=== PATIENT | female | born 1960 | race Caucasian/White ===

== ENCOUNTER 2024-08-12 07:00 | Outpatient (OUT) | payer OTHER, SELFPAY ==
--- OUTSIDE RECORDS SUMMARY | 2024-08-13 13:58 | XMS_ITS | Data Portability ---
Author Organization [facility] Nickolas [place], [place] Address [address] [place] [address] Care Team Providers Care Svp Monetization Name Role Phone STALINDENNY Primary Care Provider [phone] CLINT GHOTRA Rules Examiner DONNA HERRERA Temperature Inspector [phone] Assessment Encounter Date Assessment Date Assessment LastModified by Organization Details LastModified Time 06/17/2024 06/17/2024 Patient seen in office today. Spent greater than 30 minutes with patient, over 50% of the time spent on counseling, including time spent reviewing interval history, labs, data, reviewing/refill ing prescriptions, updating/complet ing documentation in the EHR, ordering medications, tests, referring or communicating to other health providers. This time is independent and non-overlapping. This time does NOT include time spent on CGM-related services or interpretation. Not available 06/17/2024 15:36:41 Plan of Treatment Reminders Order Date Submit Date Provider Last Modified By Organization Details Last Modified Time Details Appointments Follow Up 2024 11:20A Lina Ratliff MD Not available Not available Not available Lab None recorded. Referral None recorded. Procedures None recorded. Surgeries None recorded. Imaging None recorded. 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 Patient Instructions Encounter Date Encounter Id Patient Instructions Last Modified By Organization Details Last Modified Time 08/02/2023 [id number] controlling your asthma: care instructions [email or web address] Not available 08/02/2023 09:14:07 learning about asthma [email or web address] Not available 08/02/2023 09:14:07 constipation: ca re instructions [email or web address] Not available 08/02/2023 09:06:27 high cholesterol : care instructions [email or web address] Not available 08/02/2023 09:06:27 insulin resistance: care instructions [email or web address] Not available 08/02/2023 09:06:27 hypothyroidism: care instructions [email or web address] Not available 08/02/2023 09:06:27 06/17/2024 [id number] Patient voiced understanding of plan and questions were answered to their satisfaction. Not available 06/17/2024 15:30:13 Reason for Referral None Reported. Results Created Date Observation Date Name Description Value Unit Range Abnormal Flag Note LastModifiedBy Organization Detail LastModifiedTime 07/10/1907/10/2023 vitam in D2, 25-hy droxy , serum - vitamin D, 25-hydroxy Not Available Not Available 0 07/11/2024 06:02:32 07/10/19 24 07/10/2023 lab resul t - TSH Not Available Not Availa ble 07/11/2024 06:02:32 07/10/19 24 07/10/2023 T4, free, serum - T4, free Not Available Not Isi ilable 07/11/2024 06:02:24 05/06/20 24 07/10/2023 T3, free, serum or plasm a - T3, free Not Available Not Isi ilable 07/11/2024 06:02:24 07/10/19 24 07/10/2023 lipid panel w/ direc t LDL, serum - lipid panel with reflex to direct LDL Not Available Not Available 0 07/11/2024 06:02:22 07/10/19 24 07/10/2023 HbA1c (hemo globi n A1c), blood - hemoglobin A1C Not Available Not Available 10/2024 06:02:20 07/10/19 24 07/10/2023 CMP, serum or plasm a - comprehensiv e metabolic panel Not Available Not Available 10/2024 06:02:19 Result Notes None recorded. Problems Name Problem SNOMED Code Status Onset Date Resolution Date Notes Provider Name and Address Organization Details Recorded Time Hyperlipi demia 05459344 Active 2022 Hyperlipid emia LDL goal <130; W/U Status: confirmed Not Available [facility] 3 07:38:34 Intestina l malabsorp tion 542618694 Active 2016 Malabsorpt ion; W/U Status: confirmed Not Available [facility] 3 07:38:34 Metabolic syndrome X 301726802 Active 2014 Metabolic syndrome; W/U Status: confirmed Not Available [facility] 3 07:38:34 Serum alkaline phosphata se above reference range 894065244 Active 2022 Elevated serum alkaline phosphatas e level; W/U Status: confirmed Not Available [facility] 3 07:38:34 Vitamin D deficienc y 99439591 Active 2017 Vitamin D deficiency ; W/U Status: confirmed Not Available [facility] 3 07:38:34 Fatigue 62736840 Active 2016 Other fatigue; W/U Status: confirmed Not Available [facility] 3 07:38:35 Constipat ion 29810150 Active 2016 Constipati on; W/U Status: confirmed Not Available [facility] 3 07:38:35 Hypothyro idism 74886500 Active 2017 Hypothyroi dism; W/U Status: confirmed Not Available [facility] 3 07:38:35 Acquired hypothyro idism 182836805 Active 2024 Liz Ratliff MD [address] [place], [address] , [facility] 5 15:34:36 Asthma 274067474 Active 2023 Erin Mancera MD [facility] [place], [address] , [facility] 4 09:11:30 Problem Notes None recorded. Medical Equipment None Reported. Allergies Allergen ID Allergen Name Allergen Category Reaction Reaction Severity Criticality Documentation Date Start Date Code Code System Note Provider Name and Address Organization Details Recorded Time 66236 Substance with sulfonami de structure and antibacte rial mechanism of action (substanc e) medicatio n Not available Not available Not available 12/25/2022 53807 8003 SNOMED Not Available [facility] 3 07:34:50 28462 Synvisc medicatio n Not available Not available Not available 12/25/2022 26594 4 RxNorm Not Available [facility] 3 07:34:50 Medications Name Sig Start Date Stop Date Status Note LastModified by Organization Details LastModified Time celecoxib 200 mg capsule TAKE 1 CAPSULE DAILY active Not Available Not Available No t Available monteluka st 5 mg chewable tablet 1 tab(s); once a day active Action: Taking S ource: Donna Floyd Prepare d By: Donna Floyd Not Available Not Available Not Available levothyro xine 137 mcg tablet 1 tab(s); once a day; 30 active Action: 3 Source : Shoshana Loja Prepare d By: Damian Curry on 09/11/2012 3:55:05 PM Faxed : Faxed-Dr cha Skinner Not Available Not Available Not Available nystatin 100,000 unit/mL oral suspensio n TAKE 15 ML BY MOUTH 3 TIMES DAILY FOR 4 WEEKS 08/01 completed Not Available Not Available Not Available Unithroid 88 mcg tablet 1 tab(s); once a day (in addition to MAINTENANCE TRUCK DRIVER thyroid) ; 90 days active Action: 3 Source : VikiSharion T Prepare d By: JameyhamiltonkofiShari 0 12:53:59 PM Asses sment: E03.9 Hypothyr oidism Not Available Not Available Not Available [place] Thyroid 90 mg tablet 1 tab(s); once a day; 30 day(s) active Action: Taking S ource: Nikki Lee MD Prepa red By: Nikki Lee Ass essment: E03.9 Hypothyr oidism, unspecif ied Not Available Not Available Not Available cetirizin e 10 mg tablet TAKE 1 TABLET (10 MG) BY MOUTH DAILY NEEDED FOR ALLERGIE S active Not Available Not Available No t Available azithromy lee 250 mg tablet TAKE 2 TABLETS BY MOUTH TODAY, THEN TAKE 1 TABLET DAILY FOR 4 DAYS DIRECTED 08/01 completed Not Available Not Available Not Available tizanidin e 4 mg tablet TAKE 1 TABLET 4 TIMES DAILYAS NEEDED active Not Available Not Available No t Available fluconazo le 150 mg tablet TAKE 1 TABLET BY MOUTH WEEKLY 08/01 completed Not Available Not Available Not Available benzonata te 200 mg capsule TAKE 1 CAPSULE BY MOUTH EVERY 8 HOURS NEEDED FOR COUGH DIRECTED 08/01 completed Not Available Not Available Not Available Synthroid 150 mcg tablet 1 tab(s); once a day; 30 day(s) active Action: Taking S ource: Nikki Lee MD Prepa red By: Navi Castaneda 08/07/2012 2:50:07 PM Not Available Not Available Not Available fluconazo le 200 mg tablet TAEK 1 TABLET BY MOUTH ONCE WEEKLY 08/01 completed Not Available Not Available Not Available Synthroid 125 mcg tablet 1 tab; once a day; 30 day(s) active Action: Taking S ource: Shoshana Espinoza d By: Nikki Lee 03/04/20 13 10:52:33 AM Asses sment: 244.9 Hypothyr oidism Not Available Not Available Not Available famotidin e 40 mg tablet TAKE 1 TABLET BY MOUTH ONCE DAILY AT BEDTIME 08/01 completed Not Available Not Available Not Available prednison e 20 mg tablet TAKE 1 TABLET (20 MG) BY MOUTH IN THE MORNING AND BEFORE BEDTIME. DO ALL THIS FOR 6 DAYS. 08/01 completed Not Available Not Available Not Available dexametha sone 6 mg tablet TAKE 1 TABLET BY MOUTH FOR 7 DAYS THEN 1/2 FOR 7 DAYS 08/01 completed Not Available Not Available Not Available clindamyc in HCl 150 mg capsule TAKE 1 CAPSULE BY MOUTH SELECT FREQUENC Y TAKE WITH A PROBIOTI C 06/17 completed Not Available Not Available Not Available cosyntrop in 0.25 mg solution for injection 0.25 mg; once; 1 dose(s) 2012 active Action: Start So urce: Nikki Lee MD Prepa red By: Nikki Lee 03/04/20 13 10:59:04 AM Asses sment: 780.79 Fatigue Not Available Not Available Not Available Vitamin B-12 500 mcg tablet 2 tabs; once a day active Action: Disconti nued Nelida rce: Nikki Lee MD Prepa red By: Nikki Lee Not Available Not Available Not Available liothyron ine 5 mcg tablet 1-2 times; once a day; 30 day(s) 2012 active Action: Start So urce: Tamara Rose Prepare d By: Tamara Rose 3 11:04:13 AM Asses sment: 244.9 Hypothyr oidism Not Available Not Available Not Available Unithroid 112 mcg tablet Take 1 tablet every day by oral route for 90 days. 2024 active Not Available Not Available Not Avai lable amoxicill in 875 mg tablet TAKE 1 TABLET BY MOUTH TWICE A DAY FOR 5 DAYS 06/17 completed Not Available Not Available Not Available famotidin e 20 mg tablet TAKE 1 TABLET BY MOUTH AT BEDTIME 08/01 completed Not Available Not Available Not Available Vicky 180 mg tablet 1 tab(s); 1-2 times a day active Action: Taking S ource: Nikki Lee MD Prepa red By: Navi Castaneda 3 9:29:27 AM Not Available Not Available Not Available doxycycli ne monohydra te 100 mg capsule TAKE 1 CAPSULE BY MOUTH TWICE A DAY 08/01 completed Not Available Not Available Not Available dexametha sone 2 mg tablet TAKE 1 TABLET BY MOUTH EACH MORNING 08/01 completed Not Available Not Available Not Available pantopraz ole 40 mg tablet,de layed release TAKE 1 TABLET BY MOUTH TWICE A DAY 08/01 completed Not Available Not Available Not Available Unithroid 50 mcg tablet 1 tab(s); once a day; 90 days active Action: Continue Source: Shari Drew Prepare d By: Shari Drew 07/12/2018 3:01:16 PM Asses sment: E03.9 Hypothyr oidism Not Available Not Available Not Available dexametha sone 4 mg tablet PLEASE SEE ATTACHED FOR DETAILED DIRECTIO NS 08/01 completed Not Available Not Available Not Available Vicky-D 12 Hour 60 mg-120 mg tablet,ex tended release 08/01 completed Not Available Not Available Not Available prednison e 50 mg tablet TAKE 1 TABLET BY MOUTH 13 HOURS, 7 HOURS AND 1 HOUR BEFORE DYE EXPOSURE 06/17 completed Not Available Not Available Not Available losartan 25 mg tablet TAKE 1 TABLET BY MOUTH EVERY DAY active Not Available Not Available No t Available Unithroid 100 mcg tablet 1 tab(s); once a day (in addition to MAINTENANCE TRUCK DRIVER thyroid) ; 90 days active Action: Taking S ource: Nikki Lee MD Prepa red By: Nikki Lee Ass essment: E03.9 Hypothyr oidism Not Available Not Available Not Available Banophen 25 mg capsule 2 CAP(S) ORAL ONCE,INS TR:1 HOUR BEFORE DYE EXPOSURE 06/17 completed Not Available Not Available Not Available budesonid e 0.5 mg/2 mL suspensio n for nebulizat ion INHALE ENTIRE CONTENTS VIA NEUBULIZ ER EVERY 12 HOURS 08/01 completed Not Available Not Available Not Available monteluka st 10 mg tablet TAKE 1 TABLET DAILY active Not Available Not Available No t Available Unithroid 25 mcg tablet 1 tab(s); once a day; 90 days 2017 active Action: Start So urce: Shari Drew Prepare d By: Shari Drew 02/21/20 18 10:53:38 AM Asses sment: E03.9 Hypothyr oidism e Prescrip tion: ePrescri ption-KR OGER RON 505 Not Available Not Available Not Available azelastin e 137 mcg (0.1 %) nasal spray INSTILL 2 SPRAYS IN EACH NOSTRL DAILY DIRECTED 08/01 completed Not Available Not Available Not Available ibuprofen 600 mg tablet TAKE 1 TABLET BY MOUTH EVERY 8 HOURS NEEDED FOR PAIN active Not Available Not Available No t Available albuterol sulfate HFA 90 mcg/actua tion aerosol inhaler INHALE 2 PUFFS BY MOUTH EVERY 6 HOURS 08/01 completed Not Available Not Available Not Available Unithroid 75 mcg tablet 1 tab(s); once a day; 90 days active Action: Taking S ource: Nikki Lee MD Prepa red By: Nikki Lee Ass essment: E03.9 Hypothyr oidism e Prescrip tion: ePrescri ption-EX PRESS SCRIPTS Not Available Not Available Not Available Vitamin D2 1,250 mcg (50,000 unit) capsule 50,000 IU; 1 capsule 2 days a week for 2 months; 60 days 2012 active Action: Taking S ource: Tamara Rose Prepare d By: Navi Castaneda 3 9:29:27 AM Not Available Not Available Not Available ipratropi um bromide 42 mcg (0.06 %) nasal spray SPRAY 2 SPRAYS INTO EACH NOSTRIL EVERY MORNING EVERY EVENING & AT BEDTIME active Not Available Not Available No t Available cefdinir 300 mg capsule TAKE 1 CAPSULE (300 MG TOTAL) BY MOUTH TWO TIMES A DAY FOR 7 DAYS. 06/17 completed Not Available Not Available Not Available fluticaso ne propionat e 50 mcg/actua tion nasal spray,raimundo pension ADMINIST ER 2 SPRAYS INTO EACH NOSTRIL DAILY SHAKE GENTLY. BEFORE FIRST USE, PRIME PUMP. 08/01 completed Not Available Not Available Not Available metformin ER 500 mg tablet,ex tended release 24 hr 2 tabs; once a day active Action: Disconti nued Nelida rce: Tamara Rose Prepare d By: Nikki Lee essment: 277.7 Insulin Resistan ce Syndrome Not Available Not Available Not Available amoxicill in 875 mg-potass ium clavulana te 125 mg tablet TAKE 1 TABLET (875 MG) BY MOUTH EVERY DAY IN THE MORNING AND AT BEDTIME 08/01 completed Not Available Not Available Not Available Topamax 50 mg tablet 1 tab(s); 2 times a day; 30 day(s) active Action: Taking S ource: Nikki Lee MD Prepa red By: Navi Castaneda 08/07/2012 2:50:07 PM Not Available Not Available Not Available Cymbalta 60 mg capsule,d elayed release 1 cap(s); once a day active Action: Not-Taki ng/PRN S ource: Shari Drew T Prepare d By: Shari Drew Not Available Not Available Not Available levalbute rol HFA 45 mcg/actua tion aerosol inhaler INHALE 2 PUFFS EVERY 6 HOURS NEEDED FOR WHEEZING 08/01 completed Not Available Not Available Not Available Zanaflex 4 mg capsule 2 tab(s); every 8 hours prn; 30 day(s) active Action: Taking S ource: Tamara Rose Prepare d By: Navi Castaneda 3 9:29:27 AM Not Available Not Available Not Available chlorhexi dine gluconate 0.12 % mouthwash SWISH AND SPIT 15 ML BY MOUTH TWICE A DAY active Not Available Not Available No t Available Sudafed active Action: Taking S ource: Nikki Lee MD Not Available Not Available Not Available Nasacort active Action: Taking S ource: Nikki Lee MD Not Available Not Available Not Available multivita min 1 tab daily active Not Available Not Available No t Available cholecalc iferol (vitamin D3) 25 mcg (1,000 unit) tablet 3 Tabs; once a day active Action: Taking S ource: Shari Drew michael T Prepare d By: Shari Drew Ass essment: E55.9 Vitamin D deficien cy, unspecif ied Not Available Not Available Not Available arformote rol 15 mcg/2 mL solution for nebulizat ion INHALE 1 NEBULE VIA NEBULIZE R TWICE DAILY 08/01 completed Not Available Not Available Not Available cholecalc iferol (vitamin D3) 125 mcg/mL (5,000 unit/mL) oral drops 1 cap(s); once a day; 30 day(s) active Action: Taking S ource: Tamara Rose d By: Navi Castaneda 3 9:29:27 AM Not Available Not Available Not Available Tirosint 125 mcg capsule 1 cap(s); once a day; 30 day(s) active Action: Taking S ource: Tamara Rose d By: Tamara Rose ssessmen t: 244.9 Hypothyr oidism Not Available Not Available Not Available Tirosint 100 mcg capsule 1 cap(s); once a day; 30 day(s) active Action: 4 Source : Milton Mcdonald P repared By: Tamara Rose 02/26/20 15 11:07:13 AM Asses sment: E03.9 Hypothyr oidism, unspecif ied ePre scriptio n: [facility]Prescri [facility]tion-[facility] Not Available Not Available Not Available Tirosint 112 mcg capsule 1 cap(s); once a day; 30 day(s) active Action: Taking S ource: Nikki Lee MD Prepa red By: Nikki Lee Ass essment: E03.9 Hypothyr oidism, unspecif ied ePre scriptio n: ePrescri ption-KR OGER RON 505 Not Available Not Available Not Available Tirosint 150 mcg capsule 1 cap(s); once a day; 30 day(s) 2012 active Action: Taking S ource: Shoshana Espinoza d By: Nikki Lee 03/04/20 13 10:52:33 AM Asses sment: 244.9 Hypothyr oidism Not Available Not Available Not Available Tirosint 137 mcg capsule 1 cap(s); once a day; 30 day(s) active Action: 3 Source : Nikki Lee MD Prepa red By: Nikki Lee 6 9:07:59 AM Asses sment: E03.9 Hypothyr oidism, unspecif ied ePre scriptio n: ePrescri ption-KR OGER RON 505 Not Available Not Available Not Available BD Ultra-Fin e Marcelle Pen Needle 32 gauge x 5/32 as directed ; daily; 90 days active Action: Taking S ource: Shari Drew Prepare d By: Nikki Lee Ass essment: E88.81 Metaboli c syndrome ePrescr iption: ePrescri ption-Ca remark Not Available Not Available Not Available [employer]INTENA[employer]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 2024 active Not Available Not Available Not Avai lable Vitamin D3 50 mcg (2,000 unit) capsule 1 cap(s); once a day active Action: 4 Source : Shari Drew Prepare d By: Shari Drew 7 4:18:30 PM Asses sment: E55.9 Vitamin D deficien cy, unspecif ied Not Available Not Available Not Available Victoza 2-Bob 0.6 mg/0.1 mL (18 mg/3 mL) subcutane ous pen injector 1.8 mg; once a day; 90 days active Action: Taking S ource: Shari Drew Prepare d By: Nikki Lee Ass essment: E88.81 Metaboli c syndrome ePrescr iption: ePrescri ption-Ca remark Not Available Not Available Not Available Farxiga 10 mg tablet TAKE 1 TABLET BY MOUTH DAILY 08/01 completed Not Available Not Available Not Available Trulicity 1.5 mg/0.5 mL subcutane ous pen injector 1.5 mg; once a week; 30 day(s) 2015 active Action: Start So urce: Nikki Lee MD Prepa red By: Nikki Lee 6 9:06:34 AM Asses sment: 277.7 Insulin Resistan ce Syndrome Not Available Not Available Not Available Saxenda 3 mg/0.5 mL (18 mg/3 mL) subcutane ous pen injector 3 mg; daily 2014 active Action: Stop Nelida rce: Nikki Lee MD Prepa red By: Nikki Lee 6 9:06:34 AM Asses sment: 277.7 Insulin Resistan ce Syndrome Not Available Not Available Not Available Cl[place]all DMT 30 mg-30 mg tablet TAKE 1 TABLET BY MOUTH EVERY 4 HOURS NEEDED 08/01 completed Not Available Not Available Not Available Yupelri 175 mcg/3 mL solution for nebulizat ion INHALE 1 NEBULIZE R DAILY 08/01 completed Not Available Not Available Not Available Trelegy Ellipta 200 mcg-62.5 mcg-25 mcg powder for inhalatio n INHALE 1 PUFF ONCE DAILY 08/01 completed Not Available Not Available Not Available Astepro Allergy 205.5 mcg (0.15 %) nasal spray INSTILL 2 SPRAYS INTO EACH NOSTRIL TWICE DAILY active Not Available Not Available No t Available Vitals Date Recorded Body height Body mass index (BMI) Body weight Heart rate Systolic blood pressure Diastolic blood pressure Provider Name and Address Organization Details Last Updated DateTime 5 156.845 cm 31 kg/m2 35428.2 4 g 82 /min 138 mm[Hg] 82 mm[Hg] Sabrina Waller [facility] 5 14:36:34 Date Recorded Body height Body mass index (BMI) Body weight Heart rate Systolic blood pressure Diastolic blood pressure Provider Name and Address Organization Details Last Updated DateTime 4 156.845 cm 30.4 kg/m2 97787.7 4 g 68 /min 126 mm[Hg] 72 mm[Hg] Mary Dooley [facility] 4 08:47:04 Social History None recorded. Functional Status None recorded. Mental Status None recorded. Family History Nothing Reported Notes:Children: Notes: alive , Daughters- hypothyroidism, Chiari malformation, IBS FamilyHistoryDetails: COMMENTS:1 brother(s) , 2 sister(s) . 1 son(s) , 3 daughter(s) Father: Notes: , Type 2 DM, Coronary Artery Disease, CHF, Hyperlipidemia, Lung Cancer Maternal Grand Mother: Notes: Stomach Cancer, Early Onset Alzheimer Mother: Notes: , Pre-DM, Early Onset Alzheimers NOTE: Notes: 4 biologic children 3 adopted Paternal Grand Mother: Notes: Type 2 DM Siblings: Notes: Sisters-Thyroid Disorder; Brother ( at age 8, car accident) Children: FamilyHistoryDetails: Father: Maternal Grand Mother: Mother: NOTE: Paternal Grand Mother: Siblings: Medical History No medical history recorded. Gynecological HistoryNo gynecological history recorded. Obstetrics History GPAL:G 0 P 0 0 0 0 Past Encounters Encounter ID Performer Location Encounter Start Date Encounter Closed Date Diagnosis/Indication Diagnosis SNOMED-CT Code Diagnosis ICD10 Code Diagnosis Note [id number] Erin Mancera MD [facility] [place] Office* [address] [place] [address] 08/02/2023 08:19:13 08/02/2023 09:14:46 Hypothyroidism 24543358 E03.9 Patient seen in office today. Spent 35 minutes with patient, over 50% of the time spent on counseling , including time spent reviewing interval history, labs, data, reviewing/ refilling prescripti ons, updating/c ompleting documentat ion in the EHR, ordering medication s, tests, referring or communicat ing to other health providers. This time is independen t and non-overla pping. This time does NOT include time spent on CGM-relate d services or interpreta tion. Seeing me today for the first time. 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 Clinically feels well now. The patient was given an opportunit y to ask all questions, and I answered them. Metabolic syndrome X 237 772671 E88.810 HbA1c is normal despite steroids, which is great Hyperlipidemia 53121857 E78.5 Normal lipids; managed by PCP Vitamin D deficiency 347 46852 E55.9 Vitamin D level is optimal on current therapy. (taking a MVI) Serum jason line phosphatase above reference range 513895455 R74.8 Paget's ruled out in 2022 Constipation 88357179 K5 9.00 stable Asthma 182401595 J45.[address] Heller in pulmonary; had numerous steroids this winter; seeing aircraft instrument tester soon for allergy testing [id number] Liz Ratliff MD [place] [place] [facility]* [address] [place] [address] 06/17/2024 14:21:18 06/17/2024 15:37:41 Hypothyroidism 81586311 E03.9 -last TSH low at 0.01 (from TSH 0.06 Dec 2023) ; historical ly has been low but does have elevated TSH in ~ 2017 so dx consistent with primary hypothyroi dism; pt states thyroid dose adjustment s have been made to target a certain level of Free T4 over the years without significan t success-cl inically euthyroid on exam-discu sed plan to raise TSH to avoid osteoporos is and cardiac arrhythmia s and rely upon TSH for now to inform dose adjustment and she is agreeable to thisPlan:- continue Unithroid 112 mcg daily-decr ease to MAINTENANCE TRUCK DRIVER thyroid 60 mg five days per week (from six days)-repe at TSH in 6 weeks MAINTENANCE TRUCK DRIVER thyroid to four days/week- return in person in 3 months Asthma 665450144 J45.[address] Heller in pulmonary Hyperlipidemia 40238627 E78.5 Normal lipids; managed by PCP Vitamin D deficiency 347 99654 E55.9 Plan:-take s a multivitam i n Serum jason line phosphatase above reference range 139772380 R74.8 Paget's ruled out in 2022 Constipation 39196405 K5 9.00 stable Health Concerns Section Related Observation LastModified by Organization Detai ls LastModified Time None Recorded Concern Status LastModified by Organization Details LastModified Time None Recorded Advance Directives Directive None Recorded Payers Encounter Date Sequence Insurance Name Policy Number Policy Garcia Covered Member ID Garcia Member ID Guarantor Name 08/02/2023 1 [employer] Divya A Christina [id number] Divya Christina 06/17/2024 1 [employer] Divya A Christina [id number] Divya Christina Notes Date Note Type Note Provider Name and Address Organization Details Recorded Time 4 text/html HypothyroidismReported bypatient.Date of diagnosis:Presentation: tested during 4th around the early Symptoms:no fatigue; no unexplained weight gain/loss; no palpitations; no constipation; Other symptoms: none Context:history of thyroid nodules no; (06/15) U/S - no nodules, atrophic gland. Modifying Factors:taking medication as prescribedNotes:Treatment status:treated with MAINTENANCE TRUCK DRIVER thyroid, fully compliant with taking meds, no interferingsubstances on generic, then on branded Synthroid (10/16) tried Cytomel - nodifference/improvement (02/15) changed to Tirosint (01/19) changed to Armor due to high TSH (09/19) changed to MAINTENANCE TRUCK DRIVER thyroid (12/20) increased MAINTENANCE TRUCK DRIVER thyroid to 120 + 30 mcg every other day (05/21) taking 120 plus 1/2 of a 60 once a week (02/20) Switch to 60mg 2 tabs 6 days/week, [id number] unithroid 1 tab daily (03/24) increase unithroid to 50 mcg (07/22) change to 90g MAINTENANCE TRUCK DRIVER thyroidand 50mcg unithroid daily (10/22) dropped to MAINTENANCE TRUCK DRIVER 90 5 days and 75 mcg Unithroid daily (10/23)Changed to MAINTENANCE TRUCK DRIVER 60mg daily and Unithriod 100mcg daily (05/24) drop to MAINTENANCE TRUCK DRIVER 60 mg 6 days andUnithroid 100 daily (07/25) Reduce to MAINTENANCE TRUCK DRIVER Thyroid 60mg 5 days/week and continue [id number] daily (07/27) MAINTENANCE TRUCK DRIVER Thyroid 60mg 6 days/week and Unithroid 112mcg daily. Associated Findings: asthma, severe : menopausal Recent TSH/thyroid labs: (11/20) TSH 1.75 (02/19) TSH 16, low free T4 (03/23) TSH0.01 (06/21) TSH 0.19, Vit D 106 (10/21) TSH 0.24, free T4 slightly low (02/20) TSH 0.03, lownormal FT4 at 0.6 (07/22) TSH 0.02, FT4 normal at 0.77 (01/22) TSH 0.8, FT4 low, vit D 66 (10/23)TSH 0.27, FT4 low (05/24) TSH 0.006, FT4 nl, Vit D 72 (12/24) TSH 0.03, FT4 normal at 0.89 (06/25) TSH 0.02, FT4 normal at 1.2 (04/28) TSH 0.02, Free T4 low at 0.6, T3 normal (09/25) TSH 0.01, normal FT4 which is an improvement;(07/27) TSH 0.01, free T4 1.27, free T3 3.7 Vitamin D status: normal at 57 07/27 ObesityReported bypatient.Context:oral steroids Associated Symptoms:hypothyroidism Co-morbidities:no new co-morbidities since last visit Lifestyle changes:few constitutional symptoms related to diagnosis Nutrition:eats mostly healthy diet; (07/25) portion control, aiming for healthy foods only eat when I'm hungry an stop when I'm full (07/27) up 7 lbs Physical Activity:(09/25) doing virtual PT about 6 mo s/p R knee replacement higher activity levels are great!.Notes: status: menopausal Vitamin D:taking a MVI Prior Therapy: (02/15) started metformin, (07/17) stopped metformin - didn't really notice a difference (02/16) cannot tolerate even 1000 mg of metformin due to GI disturbance (09/17)started Saxenda w/excellent weight loss, (08/19) stopped due to lack of coverage and Trulicity not covered, back to [facility]. Current Therapy:nothing currently Associated: Paget's ruled out in 2022 with normal BSAP LABS: (06/25) TC 185, TG 166, HDL 69, LDL 88 (04/28) TC 210, TG173, HDL 67, LDL 123 (09/25) Lipids at goal Alk phos 160s, BSAP mildly elevated in 30s, PTH nl, TBili 1.3. , vit D >100 (07/27) vit D 57, normal CMP and lipids HbA1c : (07/27) 5.2%; (09/25) A1C 5.6% (04/28) 5.8% (06/25) 5.6% (12/24) 5.8% (05/24) 5.6 (10/23) 5.7% (01/22) 5.6 (5/) 5.3% (/) 5.3% (8/) 5.3% (4/) 5.2 (01/20) 5.2% (08/20) 5.6% (12/18) 5.4% (08/18) 5.6 (01/17) 5.6 (7) 5.8 (05/17) 5.6 (02/15) 5.8. Patient is here in office today for follow up for hypothyroidism. Seeing me today for the first time. Had a rough winter with steroids from asthma and a brief cardiac issue (atrial enlargement and sinus tach ) from steroids (no admission needed to hospital); from February-June her asthma was severe; latest PFTs were normal; seeing her presetter operator soon for follow up but her asthma is much better. Weight is up 7 lbs from last summer. Feeling better now. Erin Mancera MD [address] [place], [id number], [facility] 08/02/2023 09:18:11 5 text/html HypothyroidismReported bypatient.Date of diagnosis:Presentation: tested during 4th around the early Symptoms:no fatigue; no unexplained weight gain/loss; no palpitations; no constipation; Other symptoms: none Context:history of thyroid nodules no; (06/15) U/S - no nodules, atrophic gland. Modifying Factors:taking medication as prescribedNotes:Sx:*primary concern is fatigue. Pt does not report palpitations, weight changes, cold intolerance, heat intolerance, bowel changes, or tremors. Current tx: MAINTENANCE TRUCK DRIVER Thyroid 60mg 6 days/week and Unithroid 112mcg daily Treatment status:treated with MAINTENANCE TRUCK DRIVER thyroid, fully compliant with taking meds, no interferingsubstances on generic, then on branded Synthroid (10/16) tried Cytomel - nodifference/improvement (02/15) changed to Tirosint (01/19) changed to Armor due to high TSH (09/19) changed to MAINTENANCE TRUCK DRIVER thyroid (12/20) increased MAINTENANCE TRUCK DRIVER thyroid to 120 + 30 mcg every other day (05/21) taking 120 plus 1/2 of a 60 once a week (02/20) Switch to 60mg 2 tabs 6 days/week, [id number] unithroid 1 tab daily (03/24) increase unithroid to 50 mcg (07/22) change to 90g MAINTENANCE TRUCK DRIVER thyroidand 50mcg unithroid daily (10/22) dropped to MAINTENANCE TRUCK DRIVER 90 5 days and 75 mcg Unithroid daily (10/23)Changed to MAINTENANCE TRUCK DRIVER 60mg daily and Unithroid 100mcg daily (05/24) drop to MAINTENANCE TRUCK DRIVER 60 mg 6 days andUnithroid 100 daily (07/25) Reduce to MAINTENANCE TRUCK DRIVER Thyroid 60mg 5 days/week and continue [id number] daily Associated Findings: asthma, severe : menopausal - hysterectomy and BSO at age 42 Recent TSH/thyroid labs: (11/20) TSH 1.75 (02/19) TSH 16, low free T4 (03/23) TSH0.01 (06/21) TSH 0.19, Vit D 106 (10/21) TSH 0.24, free T4 slightly low (02/20) TSH 0.03, lownormal FT4 at 0.6 (07/22) TSH 0.02, FT4 normal at 0.77 (01/22) TSH 0.8, FT4 low, vit D 66 (10/23)TSH 0.27, FT4 low (05/24) TSH 0.006, FT4 nl, Vit D 72 (12/24) TSH 0.03, FT4 normal at 0.89 (06/25) TSH 0.02, FT4 normal at 1.2 (04/28) TSH 0.02, Free T4 low at 0.6, T3 normal (09/25) TSH 0.01, normal FT4 which is an improvement; (07/27) TSH 0.01, free T4 1.27, free T3 3.7 Vitamin D status: takes a multivitamin ObesityReported bypatient.Co-morbidities:no new co-morbidities since last visit Lifestyle changes:few constitutional symptoms related to diagnosis Nutrition:eats mostly healthy diet; (07/25) portion control, aiming for healthy foods only eat when I'm hungry an stop when I'm full (07/27) up 7 lbs Physical Activity:(09/25) doing virtual PT about 6 mo s/p R knee replacement higher activity levels are great!.Notes: status: menopausal Vitamin D:taking a MVI Prior Therapy: (02/15) started metformin, (07/17) stopped metformin - didn't really notice a difference (02/16) cannot tolerate even 1000 mg of metformin due to GI disturbance (09/17)started Saxenda w/excellent weight loss, (08/19) stopped due to lack of coverage and Trulicity not covered, back to [facility]. Current Therapy:nothing currently Associated: Paget's ruled out in 2022 with normal BSAP LABS: (06/25) TC 185, TG 166, HDL 69, LDL 88 (04/28) TC 210, TG173, HDL 67, LDL 123 (09/25) Lipids at goal Alk phos 160s, BSAP mildly elevated in 30s, PTH nl, TBili 1.3. , vit D >100 (07/27) vit D 57, normal CMP and lipids HbA1c : (07/27) 5.2%; (09/25) A1C 5.6% (04/28) 5.8% (06/25) 5.6% (12/24) 5.8% (05/24) 5.6 (10/23) 5.7% (11) 5.6 (07/22) 5.3% (02/20) 5.3% (8/) 5.3% (06/21) 5.2 (01/20) 5.2% (08/20) 5.6% (12/18) 5.4% (08/18) 5.6 (01/17) 5.6 (09/16) 5.8 (05/17) 5.6 (02/15) 5.8. Last visit *: July 2023 - Dr. 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 Her son-in-law has leukemia so she is helping with her grandchildren a lot. Personal:*Pt works in education research. [place] [facility] [employer]. PMH:*asthma, nasal polyps, - following with garden center manager, hx of juvenile RA Liz Ratliff MD [address] [place], [address], [facility] [place] [facility] 06/17/2024 15:39:09 OBGyn Episode No OBEpisode recorded.
--- OUTSIDE RECORDS SUMMARY | 2024-08-13 13:58 | XMS_ITS | Encounter Summary ---
Author Organization [facility] Address [address] [place] [address] Care Team Providers Care Sandblaster Stone Name Role Phone Danielito Martinez MD Primary Care Provider + [phone] Encounter Details Date Type Department Care Team (Late Contact Info) Description 12/25/2023 Orders Only [facility] [place] [address] [place] [address] Madelyn Brooke [address] [facility] [address] [place] [address] Social History Tobacco Use Types Packs/Day Years Used Date Smoking Tobacco: Never Smokeless Tobacco: Never Alcohol Use Standard Drinks/Week Comments Never 0 (1 standard drink = 0.6 oz pur e alcohol) Comments Unknown Sex and Gender Information Value Date Recorded Sex Assigned at Not on file Legal Sex Female 7:32 PM EDT Gender Identity Not on file Sexual Orientation Not on file documented as of this encounter Plan of Treatment Upcoming Encounters Date Type Department Care Team (Late st Contact Info) Description 03/31/2025 9:20 AM EST Office Visit [facility] [address] [facility] [address] [place] [phone] Tino Schmidt MD [address] [facility] [address] [place] [address] documented as of this encounter Visit Diagnoses Not on filedocumented in this encounter Care Teams Sandblaster Stone Relationship Specialty Start Date End Date Danielito Martinez MD [address] [place] [id number] PCP - General Internal Medicine 06/26/23 documented as of this encounter
--- OUTSIDE RECORDS SUMMARY | 2024-08-13 13:58 | XMS_ITS | Encounter Summary ---
Author Organization [facility] Address [address] [place] [address] Care Team Providers Care School Janitor Name Role Phone Danielito Martinez MD Primary Care Provider + [phone] Encounter Details Date Type Department Care Team (Late st Contact Info) Description 06/06/2023 Orders Only [facility] [address] [place] [phone] Danielito Martinez MD [facility] [place] [address] Social History Tobacco Use Types Packs/Day Years Used Date Smoking Tobacco: Never Assessed Comments Unknown Sex and Gender Information Value Date Recorded Sex Assigned at Not on file Legal Sex Female 7:32 PM EDT Gender Identity Not on file Sexual Orientation Not on file documented as of this encounter Plan of Treatment Upcoming Encounters Date Type Department Care Team (Late st Contact Info) Description 03/31/2025 9:20 AM EST Office Visit [facility] [address] [facility] [address] [place] [phone] Tino Schmidt MD [address] [facility] [address] [place] [address] documented as of this encounter Procedures Procedure Name Priority Date/Time Associated Diagnosis Comments ECHO TRANSTHORACIC W/ DOPPLER Routine 06/06/2023 11:45 AM EDT documented in this encounter Results * ECHO TRANSTHORACIC W/ DOPPLER (06/06/2023 11:45 AM EDT) Anatomical Region Laterality Modality Radiographic Debby ging Danielito Martinez MD IMG XR PROCEDURES Final Resu lt documented in this encounter Visit Diagnoses Not on filedocumented in this encounter Care Teams School Janitor Relationship Specialty Start Date End Date Danielito Martinez MD [facility] [place] [address] PCP - General Internal Medicine 06/26/23 documented as of this encounter
--- OUTSIDE RECORDS SUMMARY | 2024-08-13 13:58 | XMS_ITS | Clinical Summary ---
Author Organization [facility] Address [address] [place] [address] Care Team Providers Care Building Estimator Name Role Phone Juan Boone DO, Charles L Primary Care Provider Medications celecoxib 200 MG Cap take 200 mg by mouth daily. Active Levothyroxine Sodium (TIROSINT) 125 MCG Cap take 125 mcg by mouth daily. Active Fexofenadine HCl (REYES PO) take by mouth as needed. Active ergocalciferol 22900 UNITS Cap take 50,000 Units by mouth once a week. Active cholecalciferol 400 UNITS Tab take 400 Units by mouth daily. Active Active Problems No known active problems Social History Tobacco Use Types Packs/Day Years Used Date Smoking Tobacco: Never Alcohol Use Standard Drinks/Week Comments No 0 (1 standard drink = 0.6 oz pur e alcohol) Comments Unknown Sex and Gender Information Value Date Recorded Sex Assigned at Not on file Legal Sex Female 3:47 PM EDT Gender Identity Not on file Sexual Orientation Not on file Last Filed Vital Signs Vital Sign Reading Time Taken Comments Blood Pressure - - Pulse - - Temperature - - Respiratory Rate - - Oxygen Saturation - - Inhaled Oxygen Concentration - - Weight 64 kg (141 lb) 12/23/2014 9:07 AM EDT Height 157.5 cm (5' 2 ) 12/23/2014 9:07 AM EDT Body Mass Index 25.79 12/23/2014 9:07 AM EDT Plan of Treatment Health Maintenance Due Date Last Done Comments HEPATITIS C VIRUS SCREENING 1962 TETANUS 1962 HIV SCREENING DISCUSSION 1977 TDAP (ADULT) 1981 CERVICAL CANCER SCREENING DISCUSSION 05/18/1983 LIPID SCREENING 2002 MAMMOGRAM SCREENING DISCUSSION 2002 COLORECTAL CANCER SCREENING DISCUSSION 05/18/2007 PNEUMOCOCCAL VACCINE SERIES (1 of 1 - PCV) 2012 ZOSTER (SHINGLES) VACCINE (1 of 2) 2012 COVID-19 VACCINE (1 - 2023-2 5 season) 2023 INFLUENZA VACCINE (Season Ended) 2024 RSV VACCINE (1 - 1-dose 75+ series) 2037 HEP B VACCINE Aged Out No longer elig rosendo based on patient's age to complete this topic Insurance MMO Care Teams Building Estimator Relationship Specialty Start Date End Date Danielito Martinez Jr., DO [address] [place], [place] [phone] PCP - General Internal Medicine 12/23/14
--- OUTSIDE RECORDS SUMMARY | 2024-08-13 13:58 | XMS_ITS | Clinical Summary ---
Author Organization [facility] Address [facility] [place] [address] Care Team Providers Care Rubberizing Mechanic Name Role Phone Juan Boone DO, Charles Lewis Primary Care Provi andrea Jan Santiagolyudmila Gamboahiginio Unavailable [phone] Social History Tobacco Use Types Packs/Day Years Used Date Smoking Tobacco: Never Assessed Comments Unknown Sex and Gender Information Value Date Recorded Sex Assigned at Not on file Legal Sex Female 12:45 PM EST Gender Identity Not on file Sexual Orientation Not on file Plan of Treatment Health Maintenance Due Date Last Done Comments Anxiety Screening 1980 Depression Screening 1980 HIV Screening 1980 Hepatitis C Screening 1980 DTaP,Tdap,Td Vaccine (1 - Tdap) 1981 Cervical Cancer Screening 05/18/[address] Colonography 05/18/2007 Cologuard (FIT-DNA) 05/18/2007 Colonoscopy 05/18/2007 Colorectal Cancer Screening 05/18/2007 Diabetes Screening 05/18/2007 Fecal Occult Blood 05/18/2007 Lipid Screening 05/18/2007 Sigmoidoscopy 05/18/2007 Pneumococcal Vaccine: 50+ (1 of 1 - PCV) 2012 Shingrix Vaccine (1 of 2) 2012 Covid-19 Vaccine ( - 2023-25 season) 2023 Influenza Vaccine (Season Ended) 2024 RSV Vaccine (1 - 1-dose 75+ series) 2037 Insurance MMO [employer] PPO Care Teams Rubberizing Mechanic Relationship Specialty Start Date End Date Danielito Martinez Jr., [address] [place] [phone] PCP - General Internal Medicine 04/12/16 Sanjay Santiago [address] [place] [phone] Allergy 04/12/16
--- OUTSIDE RECORDS SUMMARY | 2024-08-13 13:58 | XMS_ITS | Clinical Summary ---
Author Organization [employer] Address [id number] [address] [place] [address] Care Team Providers Care Computer Systems Support Specialist Name Role Phone Juan Boone DO, Charles L Primary Care Provider Allergies Active Allergy Reactions Criticality Noted Date Comments Sumatriptan Succinate 09/27/2017 Iodinated Contrast Media 09/27/2017 Morphine 09/27/2017 Sulfa (Sulfonamide Antibiotics) Hives,Swelling,Rash High 08/25/2015 Medications celecoxib (CeleBREX) 200 mg capsule 6 Active fexofenadine (REYES) 180 mg tablet 6 Active NOVOFINE 32 32 gauge x 1/4 needle 6 Active tiZANidine (ZANAFLEX) 4 mg tablet 6 Active ibuprofen (ADVIL,MOTRIN) 800 mg tabletIndication s:Otalgia, unspecified laterality Take 1 tablet (800 mg total) by mouth every 6 (six) hours as needed for pain. 30 tablet 0 6 Active liraglutide (VICTOZA 3-SCARLET) 0.6 mg/0.1 mL (18 mg/3 mL) pen injector Inject 1.2 mg under the skin daily. Active thyroid, pork, 260 mg tablet Take by mouth. Active ondansetron (ZOFRAN) 4 mg tablet Take 1 tablet (4 mg total) by mouth every 8 (eight) hours as needed for nausea or vomiting for up to 12 doses. 12 tablet 8 Active Active Problems Problem Noted Date Diagnosed Date Otalgia 08/25/2015 Sensorineural hearing loss of left ear 6 Encounters Date Type Department Care Team Description 06/04/2024 7:56 AM EDT - 06/04/2024 11:59 PM EDT Hospital Encounter [facility] [address] [place] [address] Metabolic syndrome; Vitamin D deficiency, unspecified; Hypothyroidism, unspecified Discharge Disposition: Still a Patient 06/04/2024 Travel 05/13/2024 8:00 AM EDT - 05/13/2024 11:59 PM EDT Hospital Encounter [facility] - Lab [address] [place] [address] Discharge Disposition: Still a Patient 05/13/2024 Travel from Last 3 Months Family History Medical History Relation Name Comments Cancer Father Diabetes Father Heart disease Father Lung disease Father Cancer Maternal Grandfather Cancer Maternal Grandmother Cancer Paternal Grandfather Diabetes Paternal Grandmother Breast cancer Neg Hx Relation Name Status Comments Father Maternal Grandfather Maternal Grandmother Paternal Grandfather Paternal Grandmother Social History Tobacco Use Types Packs/Day Years Used Date Smoking Tobacco: Never Alcohol Use Standard Drinks/Week Comments No 0 (1 standard drink = 0.6 oz pur e alcohol) Childcare Answer Date Recorded Childcare Unknown 08/15/2018 Employment Answer Date Recorded Employment Unknown 08/15/2018 Purpose - Life Answer Date Recorded Purpose and direction in life Unknown Comments No Sex and Gender Information Value Date Recorded Sex Assigned at Not on file Legal Sex Female 11:45 AM EDT Gender Identity Female 02/03/2021 10:03 AM EST Sexual Orientation Not on file Last Filed Vital Signs Vital Sign Reading Time Taken Comments Blood Pressure 137/84 10/17/2018 1:32 PM EDT Pulse 102 10/17/2018 1:11 PM EDT Temperature 36.1 C (97 F) 10/17/2018 1:32 PM EDT Respiratory Rate 18 10/17/2018 1:32 PM EDT Oxygen Saturation 100% 10/17/2018 1:11 PM EDT Inhaled Oxygen Concentration - - Weight 73.5 kg (162 lb) 11/29/2023 10:20 AM EDT Height 154.9 cm (5' 1 ) 11/29/2023 10:20 AM EDT Body Mass Index 30.61 11/29/2023 10:20 AM EDT Plan of Treatment Health Maintenance Due Date Last Done Comments Depression Screening 1974 Tobacco Screening 1974 Adult BMI Follow Up Plan 1980 Pap Smear 05/18/1983 Influenza Vaccine 11/04/2024 10/14/2023, , 12/06/2021, Additional history exists Adult BMI Screening 11/28/2024 11/29/2023 DTaP,Tdap and Td Vaccines (2 - Td or Tdap) 10/16/2033 10/17/2023 COVID-19 Vaccine Completed 04/26/2024, 12/2023, 11/28/2022, Additional history exists Zoster (Shingles) Vaccine Completed 04/26/2024, Medical Devices Not on file Procedures Procedure Name Priority Date/Time Associated Diagnosis Comments COMPREHENSIVE METABOLIC PANEL Routine 06/04/2024 7:56 AM EDT Metabolic syndrome Vitamin D deficiency, unspecified Hypothyroidism, unspecified HEMOGLOBIN A1C Routine 06/04/2024 7:56 AM EDT Metabolic syndrome Vitamin D deficiency, unspecified Hypothyroidism, unspecified VITAMIN D 25 HYDROXY Routine 06/04/2024 7:56 AM EDT Metabolic syndrome Vitamin D deficiency, unspecified Hypothyroidism, unspecified THYROID PROFILE INCLUDES TSH FT4 Routine 06/04/2024 7:56 AM EDT Metabolic syndrome Vitamin D deficiency, unspecified Hypothyroidism, unspecified T3, FREE Routine 06/04/2024 7:56 AM EDT Metabolic syndrome Vitamin D deficiency, unspecified Hypothyroidism, unspecified from Last 3 Months Results * (ABNORMAL) Thyroid profile includes TSH FT4 (06/04/2024 7:56 AM EDT) TSH 0.02(L) 0.49 - 4.67 uIU/mL 06/04/2024 2:07 PM EDT [facility] T4, free 1.01 0.61 - 1.60 ng/dL 06/04/2024 2:12 PM EDT [facility] PLASMA 06/04/2024 7:56 AM EDT 06/04/2024 7:57 AM EDT us Erin Mancera MD LAB BLOOD ORDERABLES Final Re sult [facility] [address] [place] [address], [address] [address] * Vitamin D 25 hydroxy (06/04/2024 7:56 AM EDT) Vit D, 25-Hydroxy 58.7 30 - 100 ng/mL 06/04/2024 2:22 PM EDT [facility] Comment: Vitamin D status 25 [place] Vitamin D Deficiency <20 ng/mL Insufficiency 20-29 ng/mL Sufficiency 30-100 ng/mL Toxicity >100 ng/mL NOTE: A pediatric reference range has not been established by the guest relations receptionist of this kit. The [place] [employer] [employer] recommends a Vitamin D level of = or >20ng/mL in infants and children. PLASMA 06/04/2024 7:56 AM EDT 06/04/2024 7:57 AM EDT us Erin Mancera MD LAB BLOOD ORDERABLES Final Re sult [facility] [address] [place] [address] * T3, free (06/04/2024 7:56 AM EDT) T3, free 3.10 2.50 - 3.90 pg/mL 06/04/2024 2:08 PM EDT [facility] PLASMA 06/04/2024 7:56 AM EDT 06/04/2024 7:57 AM EDT us Erin Mancera MD LAB BLOOD ORDERABLES Final Re sult Performing Organization Address [facility]/ZIP Co de Phone Number [facility] [address] [place] [address], [address] [place] [address] * Hemoglobin A1c (06/04/2024 7:56 AM EDT) Hemoglobin A1C 5.5 4.4 - 5.6 % 06/04/2024 1:45 PM EDT [facility] Comment: NOTE ADA Guidelines Result HgbA1c Normal : less than 5.7 % Prediabetes : 5.7 % to 6.4 % Diabetes : > 6.4 % Use with caution in patients with abnormal hemoglobin variants as the half-life of red blood cells and in vivo glycation rates are affected. Average glucose 111 mg/dL 1:45 PM EDT [facility] PLASMA 06/04/2024 7:56 AM EDT 06/04/2024 7:57 AM EDT us Erin Mancera MD LAB BLOOD ORDERABLES Final Re sult Performing Organization Address City/[facility]/ZIP Co de Phone Number [facility] [address] [place] [address], [facility] [address] [place] [address] * (ABNORMAL) Comprehensive metabolic panel (06/04/2024 7:56 AM EDT) Sodium 141 134 - 146 mmol/L 06/04/2024 2:16 PM EDT [facility] Potassium, Bld 4.0 3.5 - 5.0 mmol/L 06/04/2024 2:16 PM EDT [facility] Chloride 107 98 - 109 mmol/L 06/04/2024 2:16 PM EDT [facility] CO2 22 22 - 32 mmol/L 06/04/2024 2:16 PM EDT [facility] Anion gap 12 5 - 15 mmol/L 06/04/2024 2:16 PM EDT [facility] BUN 16 5 - 27 mg/dL 06/04/2024 2:16 PM EDT [facility] Creatinine 0.87 0.40 - 1.00 mg/dL 06/04/2024 2:16 PM EDT [facility] Comment:METHOD TRACEABLE TO IDMS STANDARD Glucose 110(H) 65 - 99 mg/dL 06/04/2024 2:16 PM EDT [facility] Calcium 9.7 8.5 - 10.5 mg/dL 06/04/2024 2:16 PM EDT [facility] Total Protein 7.0 6.0 - 8.0 g/dL 06/04/2024 2:16 PM EDT [facility] Albumin 4.2 3.2 - 5.3 g/dL 06/04/2024 2:16 PM EDT [facility] Alkaline Phosphatase 129 39 - 130 U/L 06/04/2024 2:16 PM EDT [facility] AST 24 0 - 41 U/L 06/04/2024 2:16 PM EDT [facility] ALT 19 0 - 31 U/L 06/04/2024 2:16 PM EDT [facility] Total bilirubin 0.8 0.3 - 1.2 mg/dL 06/04/2024 2:16 PM EDT [facility] eGFR (CKD-EPI)non-rac e dependent 75 >59 ml/min/1.7 3sq.m 06/04/2024 2:16 PM EDT [facility] Comment: Reported eGFR is based on the CKD-EPI 2020 equation that does not use a race coefficient. PLASMA 06/04/2024 7:56 AM EDT 06/04/2024 7:57 AM EDT us Erin Mancera MD LAB BLOOD ORDERABLES Final Re sult [facility] [address] [facility], [address] [place] [address] from Last 3 Months Insurance [employer] Care Teams Computer Systems Support Specialist Relationship Specialty Start Date End Date Danielito Martinez Jr., [facility] [place], [place] [id number] PCP - General Internal Medicine 08/25/15
--- OUTSIDE RECORDS SUMMARY | 2024-08-13 13:58 | XMS_ITS | Encounter Summary ---
Author Organization [facility] Address [address] [place] [address] Care Team Providers Care Acetylene Cutter Name Role Phone Danielito Martinez MD Primary Care Provider [phone] Encounter Details Date Type Department Care Team (Late st Contact Info) Description 08/07/2023 Clinisync Result Encounter [facility] Department Unsolicited Zoey Mendoza MD [address] [facility] [address] [place], [place] [id number] Social History Tobacco Use Types Packs/Day Years [...] Office Visit [facility] [address] [facility] [address] [place] [phone] Tino Schmidt MD [address] [facility] [address] [place] [address] documented as of this encounter Procedures Procedure Name Priority Date/Time Associated Diagnosis Comments CT MAXILLOFACIAL W/O CONTRAST 08/07/2023 7:33 AM EDT documented in this encounter Results * CT MAXILLOFACIAL W/O CONTRAST (08/07/2023 7:33 AM EDT) Anatomical Region Laterality Modality Other 08/07/2023 7:33 AM EDT Narrative 08/09/2023 2:37 PM EDT Exam Date/Time: 08/07/2023 07:42 EDT Reason for Exam: J32.4 Report IMPRESSION: PARANASAL SINUS DISEASE DETAILED. Exam: CT Maxillofacial w/o Contrast History: Sinusitis Technique: Multiple contiguous axial images were obtained of the maxillofacial bones without contrast. Multiplanar reformats were obtained. Comparison: None available Findings: Maxillary Sinuses: Mild mucosal thickening of the right maxillary sinus. The left maxillary sinus is clear. Ethmoid sinuses: Clear. Sphenoid sinuses: Clear. There is sphenoid pneumatization that extends inferior and posterior to the sella, resulting in a thin posterior bony margin of the clivus, consistent with sellar type pneumatization. Frontal sinuses: Hypoplastic but clear. Right sphenoethmoidal recess: Clear. Left sphenoethmoidal recess: Clear. Right ostiomeatal complex and frontal recess: Clear. Left ostiomeatal complex and frontal recess: Clear. Nasal septum: A directional deviation with spurring. Other: Keros type 2 olfactory fossa. No Onodi or Zain cells. Mastoid air cells & middle ears: Clear. The middle ears are unremarkable. Soft tissues & Brain: No acute abnormality identified. Orbital contents are within normal limits. Report All CT scans at this facility use dose modulation, iterative reconstruction, and/or weight based dosing when appropriate to reduce radiation dose to as low as reasonably achievable. Ordering Provider: Zoey Mendoza FINAL REPORT Dictated: 08/09/2023 2:34 pm Malcolm Nicole DO Signed (Electronic Signature): 08/09/2023 2:34 pm Signed by: Malcolm Nicole DO Transcribed by: YANET Technologist: ADAM Procedure Note Radiology, Radiologist, - 08/09/2023 Exam Date/Time: 08/07/2023 07:42 EDT Reason for Exam: J32.4 Report IMPRESSION: PARANASAL SINUS DISEASE DETAILED. Exam: CT Maxillofacial w/o Contrast History: Sinusitis Technique: Multiple contiguous axial images were obtained of themaxillofacial bones without contrast. Multiplanar reformats were obtained. Comparison: None available Findings: Maxillary Sinuses: Mild mucosal thickening of the right maxillary sinus.The left maxillary sinus is clear. Ethmoid sinuses: Clear. Sphenoid sinuses: Clear. There is sphenoid pneumatization that extendsinferior and posterior to the sella, resulting in a thin posterior bony margin of theclivus, consistent with sellar type pneumatization. Frontal sinuses: Hypoplastic but clear. Right sphenoethmoidal recess: Clear. Left sphenoethmoidal recess: Clear. Right ostiomeatal complex and frontal recess: Clear. Left ostiomeatal complex and frontal recess: Clear. Nasal septum: A directional deviation with spurring. Other: Keros type 2 olfactory fossa. No Onodi or Zain cells. Mastoid air cells & middle ears: Clear. The middle ears areunremarkable. Soft tissues & Brain: No acute abnormality identified. Orbital contentsare within normal limits. Report All CT scans at this facility use dose modulation, iterativereconstruction, and/or weight based dosing when appropriate to reduce radiation dose to as low asreasonably achievable. Ordering Provider: Zoey Mendoza FINAL REPORT Dictated: 08/09/2023 2:34 pm Malcolm Nicole DO Signed (Electronic Signature): 08/09/2023 2:34 pm Signed by: Malcolm Nicole DO Transcribed by: YANET Technologist: ADAM Zoey Mendoza MD [facility] Final Resul t documented in this encounter Visit Diagnoses Not on filedocumented in this encounter Care Teams Acetylene Cutter Relationship Specialty Start Date End Date Danielito Martinez MD [address] [place] [address] PCP - General Internal Medicine 06/26/23 documented as of this encounter
--- OUTSIDE RECORDS SUMMARY | 2024-08-13 13:58 | XMS_ITS | Encounter Summary ---
Author Organization [facility] Address [address] [place] [address] Care Team Providers Care Clinical Provider Trainer Name Role Phone Danielito Martinez MD Primary Care Provider [phone] Encounter Details Date Type Department Care Team (Late Contact Info) Description 07/03/2023 Orders Only [facility] [address] [place] [address] Tamela Jordan, BARBARA [address] [facility] [address] [place] [address] Chronic pansinusitis Social History Tobacco Use Types Packs/Day Years [...] Office Visit [facility] [address] [facility] [address] [place] [phone] Tino Schmidt MD [address] [facility] [address] [place] [address] documented as of this encounter Visit Diagnoses Diagnosis Chronic pansinusitis Other chronic sinusitis documented in this encounter Care Teams Clinical Provider Trainer Relationship Specialty [place] [address] [place] [id number] PCP - General Internal Medicine 06/26/23 documented as of this encounter
--- OUTSIDE RECORDS SUMMARY | 2024-08-13 13:58 | XMS_ITS | Clinical Summary ---
Author Organization [facility] Address [address] [place] [address] Care Team Providers Care Fish Drier Name Role Phone Danielito Martinez MD Primary Care Provider Allergies Active Allergy Reactions Criticality Noted Date Comments Iodinated Contrast Media 09/27/2017 Other Reaction(s): Unknown Morphine 09/27/2017 Other 06/27/2023 Trees, dust, mold, cats, dogs Sulfa Antibiotics Hives,Rash,Swelling High 6 Other Reaction(s): Unknown Sumatriptan 09/27/2017 Medications Vicky-D Allergy & Congestion 60-120 MG 12 hr tablet Take 1 tablet by mouth in the morning and 1 tablet before bedtime. 4 Active Unithroid 112 MCG tablet Take 112 mcg by mouth in the morning. Take before meals. 4 Active montelukast (Singulair) 10 MG tablet Take 10 mg by mouth at bedtime 4 Active tiZANidine (Zanaflex) 4 MG tablet Take 4 mg by mouth every 6 (six) hours if needed 4 Active CRANE MANAGER Thyroid 60 MG tablet Take 60 mg by mouth Daily 4 Active celecoxib (CeleBREX) 200 MG capsule Take 200 mg by mouth in the morning and 200 mg before bedtime. Active cetirizine (ZyrTEC) 10 MG tabletIndications :Chronic pansinusitis Take 1 tablet (10 mg) by mouth Daily as needed for allergies 30 tablet 11 4 Active Fluticasone Propionate (Xhance) 93 MCG/ACT Exhaler SuspensionIndicat ions:Chronic maxillary sinusitis Administer 1 spray into affected nostril(s) in the morning and 1 spray before bedtime. 16 mL 11 4 01/01/20 Active ipratropium (Atrovent) 0.06 % nasal sprayIndications: Chronic rhinitis Administer 2 sprays into each nostril in the morning and 2 sprays in the evening and 2 sprays before bedtime. 15 mL 11 Active Active Problems Problem Noted Date Diagnosed Date Chronic maxillary sinusitis 08/22/2023 Bilateral tinnitus 06/27/2023 Chronic mastoiditis of both sides 06/27/2023 Dysfunction of both eustachian tubes 06/27/2023 Asymmetric SNHL (sensorineural hearing loss) Sensorineural hearing loss (SNHL) of both ears 0 06/27/2023 Hypothyroid 06/27/2023 Arthritis 06/27/2023 Otalgia 08/25/2015 Immunizations Immunization Administration Dates Next Due Pneumococcal Polysaccharide PPSV23 02/19/2024 Family History Medical History Relation Name Comments Dementia Mother Thyroid disease Mother Cancer Sister lung Diabetes Sister Heart failure Sister Hypertension Sister Relation Name Status Comments Mother Sister Social History Tobacco Use Types Packs/Day Years Used Date Smoking Tobacco: Never Smokeless Tobacco: Never Tobacco Cessation:Counseling Given: Not Answered Alcohol Use Standard Drinks/Week Comments Never 0 (1 standard drink = 0.6 oz pur e alcohol) Comments Unknown Sex and Gender Information Value Date Recorded Sex Assigned at Not on file Legal Sex Female 7:32 PM EDT Gender Identity Not on file Sexual Orientation Not on file Last Filed Vital Signs Vital Sign Reading Time Taken Comments Blood Pressure 131/72 11/17/2023 8:32 AM EDT Pulse - - Temperature - - Respiratory Rate - - Oxygen Saturation - - Inhaled Oxygen Concentration - - Weight 74.8 kg (165 lb) 04/24/2024 9:58 AM EST Height 157.5 cm (5' 2 ) 01/01/2024 10:54 AM EDT Body Mass Index 30.18 01/01/2024 10:54 AM EDT Plan of Treatment Upcoming Encounters Date Type Department Care Team (Late st Contact Info) Description 03/31/2025 9:20 AM EST Office Visit [facility] [address] [place] [address] Tino Schmidt MD [address] [facility] [address] [place] [address] Health Maintenance Due Date Last Done Comments CT Colonography 1962 Colonoscopy 1962 Colorectal Cancer Screening 1962 FIT-DNA 1962 FIT 1962 FOBT 1962 Sigmoidoscopy 1962 Pap Smear 05/18/1983 Cervical Cancer Screening 1992 HPV/Cotest 1992 Mammogram 11/28/2024 11/29/2023, 05/04, 02/08/2021, Additional history exists Influenza Vaccine Completed 12/21/2023, , 11/28/2022, Additional history exists Insurance [employer] Care Teams Fish Drier Relationship Specialty Start Date End Date Danielito Martinez MD [facility] [place] [address] PCP - General Internal Medicine 06/26/23
== END 2024-08-12 07:01 | disposition home or self-care (01) ==
LOC: SLEEP 08-13 13:55
PROVIDERS: Family Provider Internal Medicine; PCP Internal Medicine; Visit Provider Internal Medicine
DX: G47.33 Obstructive sleep apnea (adult) (pediatric) (principal); F51.01 Primary insomnia
CPT/HCPCS: 95806